=== PATIENT | male | born 1995 | race Caucasian/White ===

== ENCOUNTER 2017-01-10 12:01 | Emergency (ER) | payer OTHER ==
--- NOTE | 2017-01-10 12:21 | ERPHSYRPT ---
- History of Present Illness Time Seen by Provider: 01/10/17 12:16 Source: patient Exam Limitations: no limitations Physician History: 21-year-old white male arrives with complaint of painful erythematous gums symptoms for a week he states they bleed at times. Patient states he can get into a dentist for a week Past medical history is negative. Past surgical history negative Social history positive for tobacco use. Timing/Duration: week(s) (one week) Severity: moderate Modifying Factors: Improves With: nothing Associated Symptoms: No nausea, No vomiting, No abdominal pain, No shortness of breath, No heartburn, No diaphoresis, No cough, No chills, No chest pain, No fever, No headaches, No loss of appetite, No malaise, No rash, No syncope, No seizure, No weakness Allergies/Adverse Reactions: No Known Drug Allergies Allergy (Unverified 04/01/14 10:36) Home Medications: No Home Meds 1 ea UD 04/01/14 [History] Hx Tetanus, Diphtheria Vaccination/Date Given: No Hx Influenza Vaccination/Date Given: No Hx Pneumococcal Vaccination/Date Given: No - Review of Systems Constitutional: No Fever, No Chills Eyes: No Symptoms Ears, Nose, & Throat: Ear Pain, Other (painful erythematous gums for one week), No Ear Discharge, No Hearing Changes, No Tinnitus, No Nose Pain, No Nose Congestion, No Nose Discharge, No Sinus Drainage, No Epistaxis, No Mouth Pain, No Mouth Swelling, No Loose Teeth, No Throat Pain, No Throat Swelling, No Hoarse , No Painful Swallowing, No Snoring, No Stridor Respiratory: No Cough, No Dyspnea Cardiac: No Chest Pain, No Edema, No Syncope Abdominal/Gastrointestinal: No Abdominal Pain, No Nausea, No Vomiting, No Diarrhea Genitourinary Symptoms: No Dysuria Musculoskeletal: No Back Pain, No Neck Pain Skin: No Rash Neurological: No Dizziness, No Focal Weakness, No Sensory Changes Psychological: No Symptoms Endocrine: No Symptoms All Other Systems: Reviewed and Negative - Past Medical History Pertinent Past Medical History: No - Past Surgical History Past Surgical History: No - Social History Smoking Status: Current every day smoker How long have you smoked: yrs Exposure to second hand smoke: Yes Drug Use: none Patient Lives Alone: No - Nursing Vital Signs Nursing Vital Signs: Initial Vital Signs Temperature 98.9 F Temperature Source Oral Pulse Rate 78 Respiratory Rate 18 Blood Pressure [Right Arm] 147/87 Pain Intensity 7 - Physical Exam General Appearance: mild distress Eye Exam: PERRL/EOMI, eyes nml inspection Ears, Nose, Throat Exam: TMs normal, pharynx normal, moist mucous membranes, other (gingival mucosa erythematous) Neck Exam: normal inspection, non-tender, supple, full range of motion Respiratory Exam: normal breath sounds, lungs clear, No respiratory distress Cardiovascular Exam: regular rate/rhythm, normal heart sounds, normal peripheral pulses Gastrointestinal/Abdomen Exam: soft, normal bowel sounds, No tenderness, No mass Back Exam: normal inspection, normal range of motion, No CVA tenderness, No vertebral tenderness Extremity Exam: normal inspection, normal range of motion, pelvis stable Neurologic Exam: alert, oriented x 3, cooperative, normal mood/affect, nml cerebellar function, nml station & gait, sensation nml, No motor deficits Skin Exam: normal color, warm, dry, No rash SpO2 Interpretation: normal (100%) SpO2: 100 Oxygen Delivery: Room Air - Course Nursing assessment & vital signs reviewed: Yes - Progress Progress: improved Progress Note: 01/10/17 12:18 21-year-old white male arrives with complaint of painful erythematous gums for a week states he has talked to a dentist but can't get in for a week. Will go ahead and write for clindamycin, also Newberry Inspect is reviewed no narcotics are listed - Departure Time of Disposition: 12:19 Departure Disposition: Home Clinical Impression: Gingivitis Condition: Fair Critical Care Time: No Additional Instructions: Return home. Clindamycin 300 mg orally 3 times a day for 10 days. Newberry 5/325 #12 one orally every 4-6 hours as needed for pain. Follow-up with your dentist or your family doctor. Return for acute distress or for severe symptoms. Prescriptions: Clindamycin HCl 300 mg PO TID #30 capsule Hydrocodone/Acetaminophen [Newberry 5-325 Tablet] 1 tab PO Q4-6HPRN PRN #12 tablet PRN Reason: Pain
[2017-01-10 12:35] VITALS: BP 133/80; PULSE 74; O2SAT 98
== END 2017-01-10 12:39 | disposition home or self-care (01) ==
LOC: ED 12:01
DX: K05.10 Chronic gingivitis, plaque induced (principal)
CPT/HCPCS: 99281; 99283

== ENCOUNTER 2019-06-01 15:58 | Emergency (ER) | payer SELFPAY ==
--- NOTE | 2019-06-01 16:29 | ERPHSYRPT ---
- History of Present Illness Time Seen by Provider: 06/01/19 16:20 Source: patient Exam Limitations: no limitations Patient Subjective Stated Complaint: states began having right lateral lower rib pain last night and today coughed up some blood. denies fever, cough, or sob Triage Nursing Assessment: ambulated to room per self. skin w/d, color normal, resp easy. no coughing noted at this time. Physician History: Patient had new onset of right flank/CVA pain in the evening of 05/31/2019. Patient had an episode of coughing up blood this morning. Patient has not been evaluated prior to coming into the emergency department. Timing/Duration: yesterday, worse (over the past morning) Back Pain Location: paraspinous muscles (right flank/CVA area) Severity of Pain-Max: moderate Severity of Pain-Current: moderate Modifying Factors: Worsens With: immobilization, movement, rest Associated Symptoms: lower back pain, other (hemoptysis this morning), No fever , No chills, No sweating, No urinary incontinence, No loss of bowel control, No constipation, No nausea, No vomiting, No problems urinating, No light-headedness , No dizziness, No numbness in legs/feet, No weakness, No sensory/motor loss, No tingling in legs/feet, No muscle spasms Previous symptoms: no prior history, no recent treatment Allergies/Adverse Reactions: wool Allergy (Verified 06/01/19 16:24) Hx Tetanus, Diphtheria Vaccination/Date Given: No Hx Influenza Vaccination/Date Given: No Hx Pneumococcal Vaccination/Date Given: No - Review of Systems Constitutional: No Fever, No Chills Eyes: No Symptoms, No Eye Pain, No Vision Changes Ears, Nose, & Throat: No Nose Congestion, No Nose Discharge, No Epistaxis, No Mouth Pain, No Loose Teeth, No Throat Swelling, No Hoarse, No Painful Swallowing Respiratory: Other (hemoptysis), No Cough, No Dyspnea, No Dyspnea on Exertion ( SINGH) Cardiac: No Chest Pain, No Edema, No Syncope Abdominal/Gastrointestinal: No Abdominal Pain, No Nausea, No Vomiting, No Diarrhea, No Hematemesis, No Hematochezia, No Melena Genitourinary Symptoms: Flank Pain, No Dysuria, No Hematuria Musculoskeletal: Back Pain, No Neck Pain Skin: No Rash Neurological: No Dizziness, No Focal Weakness, No Sensory Changes Psychological: No Symptoms Endocrine: No Polyuria, No Polydipsia, No Excessive Sweating Hematologic/Lymphatic: No Easy Bleeding, No Easy Bruising All Other Systems: Reviewed and Negative - Past Medical History Pertinent Past Medical History: No - Past Surgical History Past Surgical History: No - Social History Smoking Status: Current every day smoker How long have you smoked: 7 Exposure to second hand smoke: No Drug Use: none Patient Lives Alone: No - Nursing Vital Signs Nursing Vital Signs: Initial Vital Signs Temperature 98.4 F 06/01/19 16:04 Pulse Rate 71 06/01/19 16:04 Respiratory Rate 18 06/01/19 16:04 Blood Pressure 132/89 06/01/19 16:04 O2 Sat by Pulse Oximetry 96 06/01/19 16:04 Pain Scale Pain Intensity [Right Back] 6 Pain Intensity 2 - Physical Exam General Appearance: no apparent distress, alert Eye Exam: PERRL/EOMI, eyes nml inspection Ears, Nose, Throat Exam: normal ENT inspection, pharynx normal, other (no blood in the nose, dried or active or any clots), No moist mucous membranes, No pharyngeal erythema, No tonsillar exudate Neck Exam: normal inspection, non-tender, supple, full range of motion, No meningismus, No midline tenderness Respiratory Exam: normal breath sounds, lungs clear, No respiratory distress Cardiovascular Exam: regular rate/rhythm, normal heart sounds, normal peripheral pulses, capillary refill <2 sec, No murmur, No friction rub Gastrointestinal Exam: soft, normal bowel sounds, No tenderness, No mass Back Exam: normal inspection, normal range of motion, No CVA tenderness, No vertebral tenderness, No rash Extremity Exam: normal inspection, normal range of motion, No calf tenderness, No pedal edema Neurologic Exam: alert, oriented x 3, cooperative, 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 Unremarkable pleural space with no pneumothorax or pleural effusion seen. Unremarkable heart with no cardiomegaly or pericardial effusion seen. Unremarkable aorta with no air in hasn't seen. Small cuff and another presentation 7. Unremarkable bone joints. No acute fractures. Unremarkable soft tissues. Overall impression: Acute findings. There has been a prior granulomatous disease.) Abdomen/Pelvis CT Interpretation: Tele-radiologist Report, Other (per the radiologist's interpretation: No acute intra-abdominal findings with liver, gallbladder and bile ducts, pancreas, spleen, adrenal, kidneys and ureter, stomach and bowel, appendix, and his peritoneal space, vascular, lymph nodes, bladder, bone/joint, reproductive, soft tissues all unremarkable. There is a small appendicolith seen. There is no appendiceal thickening or pair appendiceal fat stranding. Overall impression: No acute intra-abdominal findings.) Ordered Tests: Active Orders 24 hr Category Date Time Status ABDOMEN AND PELVIS W/0 CONTRAS [CT] Stat Exams 06/01/19 17:40 Taken CHEST WITHOUT CONTRAST [CT] Stat Exams 06/01/19 16:29 Taken CULTURE,URINE Stat Lab 06/01/19 17:02 Received UA W/RFX UR CULTURE Stat Lab 06/01/19 17:02 Completed Lab/Rad Data: Laboratory Results 06/01/19 Range/Units 17:02 Urine Color YELLOW (YELLOW) Urine Appearance TURBID (CLEAR) Urine pH 7.0 (5-6) Ur Specific Dyer 1.020 (1.005-1.025) Urine Protein NEGATIVE (Negative) Urine Ketones NEGATIVE (NEGATIVE) Urine Blood NEGATIVE (0-5) Shoaib/ul Urine Nitrite NEGATIVE (NEGATIVE) Urine Bilirubin NEGATIVE (NEGATIVE) Urine Urobilinogen NEGATIVE (0-1) mg/dL Ur Leukocyte Esterase NEGATIVE (NEGATIVE) Urine WBC (Auto) 26-50 (0-5) /HPF Urine RBC (Auto) 3-5 (0-2) /HPF U Epithel Cells (Auto) NONE (FEW) /HPF Urine Bacteria (Auto) RARE (NEGATIVE) /HPF Urine Mucus (Auto) SLIGHT (NEGATIVE) /HPF Urine Culture Reflexed YES (NO) Urine Glucose NEGATIVE (NEGATIVE) mg/dL - Progress Progress: improved Progress Note: 06/01/19 19:08 Patient is feeling much better with no back pain or episodes of dyspnea or hemoptysis since he has been in the emergency department. Counseled pt/family regarding: diagnosis, need for follow-up, rad results - Departure Departure Disposition: Home Clinical Impression: Hemoptysis, unspecified, Right flank pain, Elevated blood pressure reading without diagnosis of hypertension Condition: Good Critical Care Time: No Referrals: ANJU HAWKINS [Primary Care Provider] - 06/02/19 Instructions: Low Back Pain (DC), Coughing up Blood, DASH Diet Additional Instructions: No specific etiology was found for her symptoms today. Return immediately Bactrim return if any worsening cough, worsening shortness of breath, chest pain , returning coughing up blood, abdominal pain, worsening back pain, blood in her urine, or any other concerning signs or symptoms that were not present at today's emergency department visit for immediate reevaluation in the emergency department. Prescriptions: Etodolac 400 mg [Lodine 400 mg] 400 mg PO BID PRN PRN #20 tablet PRN Reason: Pain
[2019-06-01 17:16] LABS: Appearance TURBID (CLEAR); Bacteria RARE /HPF (NEGATIVE); Bilirubin NEGATIVE (NEGATIVE); Blood NEGATIVE Ery/ul (0-5); Glucose NEGATIVE (NEGATIVE); Ketones NEGATIVE (NEGATIVE); Leukocyte Esterase NEGATIVE (NEGATIVE); Mucus SLIGHT /HPF (NEGATIVE); Nitrite NEGATIVE (NEGATIVE); Protein,Urine Dip NEGATIVE (Negative); Urobilinogen NEGATIVE mg/dL (0-1); WBC 26-50 /HPF (0-5)
[2019-06-01 19:09] VITALS: BP 129/81; PULSE 62
[2019-06-01 19:13] VITALS: O2SAT 96
--- NOTE | 2019-06-02 08:39 | XRAY ---
Indication: Right flank pain. Multiple contiguous axial images obtained through the abdomen and pelvis without contrast as ordered. Comparison: None CT chest reported separately. Noncontrasted stomach and bowel loops appear nonobstructed. Normal appendix with tiny appendicolith. Minimal scattered colonic diverticulosis without diverticulitis. No free fluid/air. Spleen is enlarged measuring 14.8 cm in greatest axial dimension. Remaining liver, gallbladder, pancreas, spleen, adrenal glands, kidneys, ureters, bladder, and aorta appear unremarkable for noncontrast exam. Osseous structures intact. No ventral or inguinal hernias. Impression: 1. Colonic diverticulosis and splenomegaly. 2. Remaining CT abdomen/pelvis without contrast exam is negative. Comment: Preliminary interpretation was made by [facility]. No critical discrepancy. CT DI 23.27
--- NOTE | 2019-06-02 08:40 | XRAY ---
Indication: Hemoptysis. Multiple contiguous axial images obtained through the chest without contrast as ordered. Comparison: None CT chest reported separately. Lungs demonstrates small right lower lobe calcified granuloma and minimal bilateral dependent atelectasis. No suspicious pulmonary mass, infiltrate, or effusion. Heart is not enlarged. Aorta is normal in course and caliber. Subcarinal and bilateral hilar calcified nodes. No pathologic mediastinal lymphadenopathy. Bony thorax intact. CT abdomen reported separately. Impression: 1. Evidence for old granulomatous disease. 2. Remaining CT chest without contrast exam is negative. Comment: Preliminary interpretation was made by [facility]. No critical discrepancy. CT DI 17.76
== END 2019-06-01 19:31 | disposition home or self-care (01) ==
LOC: ED 15:58
DX: R04.2 Hemoptysis (principal); R10.9 Unspecified abdominal pain; R03.0 Elevated blood-pressure reading, without diagnosis of hypertension
CPT/HCPCS: 71250; 74176; 81001; 87086; 99284

== ENCOUNTER 2019-07-30 23:03 | Emergency (ER) | payer MEDICAID ==
--- NOTE | 2019-07-30 23:09 | ERPHSYRPT ---
- History of Present Illness Time Seen by Provider: 07/30/19 23:09 Source: patient Exam Limitations: no limitations Physician History: 23 y/o white male accidentally dropped a hammer onto his left great toe approx 7 hours waitstaff captain. pain not improving despite tylenol and ibuprofen Method of Injury: direct blow (from hammer) Occurred: this evening Quality: aching, throbbing Severity of Pain-Max: mild Severity of Pain-Current: mild Lower Extremities Pain: 1st toe: left (tenderness and swelling with nail injury- loose) Modifying Factors: Improves With: movement Allergies/Adverse Reactions: wool Allergy (Verified 07/30/19 23:29) Hx Tetanus, Diphtheria Vaccination/Date Given: No Hx Influenza Vaccination/Date Given: No Hx Pneumococcal Vaccination/Date Given: No - Review of Systems Constitutional: No Symptoms Eyes: No Symptoms Ears, Nose, & Throat: No Symptoms Respiratory: No Symptoms Cardiac: No Symptoms Abdominal/Gastrointestinal: No Symptoms Genitourinary Symptoms: No Symptoms Musculoskeletal: Injury (left great toe) Skin: No Symptoms Neurological: No Symptoms Psychological: No Symptoms Endocrine: No Symptoms Hematologic/Lymphatic: No Symptoms Immunological/Allergic: No Symptoms All Other Systems: Reviewed and Negative - Past Medical History Pertinent Past Medical History: No Neurological History: No Pertinent History ENT History: No Pertinent History Cardiac History: No Pertinent History Respiratory History: No Pertinent History Endocrine Medical History: No Pertinent History Musculoskeletal History: No Pertinent History GI Medical History: No Pertinent History History: No Pertinent History Psycho-Social History: No Pertinent History Male Reproductive Disorders: No Pertinent History - Past Surgical History Past Surgical History: No Neuro Surgical History: No Pertinent History Cardiac: No Pertinent History Respiratory: No Pertinent History Gastrointestinal: No Pertinent History Genitourinary: No Pertinent History Musculoskeletal: No Pertinent History Male Surgical History: No Pertinent History - Social History Smoking Status: Current every day smoker How long have you smoked: 7 Exposure to second hand smoke: No Drug Use: none Patient Lives Alone: No - Nursing Vital Signs Nursing Vital Signs: Initial Vital Signs Temperature 97.9 F 07/30/19 23:21 Pulse Rate 61 07/30/19 23:21 Respiratory Rate 18 07/30/19 23:21 Blood Pressure 154/88 07/30/19 23:21 O2 Sat by Pulse Oximetry 98 07/30/19 23:21 Pain Scale Pain Intensity 2 - Physical Exam General Appearance: no apparent distress, alert, anxiety Eyes, Ears, Nose, Throat Exam: normal ENT inspection, moist mucous membranes Neck Exam: normal inspection, non-tender, supple, full range of motion Cardiovascular/Respiratory Exam: chest non-tender Gastrointestinal/Abdominal Exam: non-tender Back Exam: normal inspection, normal range of motion, No CVA tenderness, No vertebral tenderness Hips Exam: bilateral: non-tender, normal inspection, normal range of motion, no evidence of injury Legs Exam: bilateral leg: non-tender, normal inspection, normal range of motion , no evidence of injury Knees Exam: bilateral knee: non-tender, normal inspection, normal range of motion, no evidence of injury Ankle Exam: bilateral ankle: non-tender, normal inspection, normal range of motion, no evidence of injury Foot Exam: left foot: bone tenderness, nail injury (1st toe nail is loose), pain , soft tissue tenderness (1st toe) Neuro/Tendon Exam: normal sensation, normal motor functions, normal tendon functions, responds to pain, no evidence tendon injury Mental Status Exam: alert, oriented x 3, cooperative Skin Exam: normal color, warm, dry SpO2 Interpretation: normal O2 Delivery: Room Air - Course Nursing assessment & vital signs reviewed: Yes Ordered Tests: Active Orders 24 hr Category Date Time Status FOOT (MINIMUM 3 VIEWS) Stat Exams 07/31/19 00:07 Ordered Medication Summary Discontinued Medications Generic Name Dose Route Start Last Admin Trade Name Gilbert PRN Reason Stop Dose Admin Oxycodone/Acetaminophen 1 tab 07/31/19 00:31 07/31/19 00:35 Percocet Tablet 5/325mg PO 07/31/19 00:32 1 tab STAT STA Administration Oxycodone/Acetaminophen Confirm 07/31/19 00:34 Percocet Tablet 5/325mg Administered 07/31/19 00:35 Dose 1 tab .ROUTE .STK-MED ONE - Progress Progress: unchanged Progress Note: 07/31/19 00:41 xray left foot-no acute bony fx or dislocation Counseled pt/family regarding: diagnosis, need for follow-up, rad results - Departure Departure Disposition: Home Clinical Impression: Toe contusion, Toenail deformity Condition: Stable Critical Care Time: No Referrals: ANJU HAWKINS [Primary Care Provider] - Additional Instructions: alternate soaking left foot in warm epsom salts or soapy water with ice pack to area. wear a bandaid to cover left great toenail. follow up with primary doctor as needed. tylenol and ibuprofen for pain
[2019-07-31] MEDS ORDERED: PERCOCET TABLET 5/325MG PO STA (00:31)
[2019-07-31] MEDS ORDERED: PERCOCET TABLET 5/325MG ONE (00:34)
[2019-07-31 01:01] VITALS: BP 133/69; PULSE 62; O2SAT 96
--- NOTE | 2019-07-31 09:05 | XRAY ---
Indication: Great toe pain following injury. Comparison: None 3 nonweightbearing views of the left foot demonstrates tiny posterior heel spur. No other bony, articular, or soft tissue abnormalities.
== END 2019-07-31 01:08 | disposition home or self-care (01) ==
LOC: ED 23:03
DX: S90.212A Contusion of left great toe with damage to nail, initial encounter (principal); L60.8 Other nail disorders; W22.8XXA Striking against or struck by other objects, initial encounter; Y93.9 Activity, unspecified; Y92.9 Unspecified place or not applicable
CPT/HCPCS: 73630; 99283; A9270-GY

== ENCOUNTER 2020-06-13 17:28 | Emergency (ER) | payer SELFPAY ==
--- NOTE | 2020-06-13 17:51 | ERPHSYRPT ---
- History of Present Illness Time Seen by Provider: 06/13/20 17:48 Source: patient Exam Limitations: no limitations Patient Subjective Stated Complaint: congestion/cough Triage Nursing Assessment: pt to ED c/o cough and nasal congestion x 3 days. s tates his ears feel full. denies COVID exposure. afebrile on arrival to ED and denies fever at home. no SOB. lung sounds clear and equal bilaterally and heart sounds clear. no other COVID sx reported. Physician History: pt to ED c/o cough and nasal congestion x 3 days. states his ears feel full. denies COVID exposure. afebrile on arrival to ED and denies fever at home. no other COVID sx reported. Timing/Duration: days (3 days) Associated Symptoms: cough, nasal congestion/drainage Allergies/Adverse Reactions: wool Allergy (Verified 06/13/20 17:47) Hx Tetanus, Diphtheria Vaccination/Date Given: No Hx Influenza Vaccination/Date Given: No Hx Pneumococcal Vaccination/Date Given: No Travel Risk - International Travel Have you traveled outside of the country in past 3 weeks: No - Coronavirus Screening Are you exhibiting any of the following symptoms?: Yes Symptoms: Cough: New Onset Close contact with a COVID-19 positive Pt in past 14-21 Days: No - Review of Systems Constitutional: No Symptoms Eyes: No Symptoms Ears, Nose, & Throat: Nose Congestion Respiratory: Cough Cardiac: No Symptoms Abdominal/Gastrointestinal: No Symptoms Genitourinary Symptoms: No Symptoms Musculoskeletal: No Symptoms Skin: No Symptoms - Past Medical History Pertinent Past Medical History: No Neurological History: No Pertinent History ENT History: No Pertinent History Cardiac History: No Pertinent History Respiratory History: No Pertinent History Endocrine Medical History: No Pertinent History Musculoskeletal History: No Pertinent History GI Medical History: No Pertinent History History: No Pertinent History Psycho-Social History: No Pertinent History Male Reproductive Disorders: No Pertinent History - Past Surgical History Past Surgical History: No Neuro Surgical History: No Pertinent History Cardiac: No Pertinent History Respiratory: No Pertinent History Gastrointestinal: No Pertinent History Genitourinary: No Pertinent History Musculoskeletal: No Pertinent History Male Surgical History: No Pertinent History - Social History Smoking Status: Current every day smoker How long have you smoked: 7 Exposure to second hand smoke: Yes Drug Use: none Patient Lives Alone: No - Nursing Vital Signs Nursing Vital Signs: Initial Vital Signs Temperature 98.3 F 06/13/20 17:34 Pulse Rate 75 06/13/20 17:34 Respiratory Rate 18 06/13/20 17:34 Blood Pressure 160/106 06/13/20 17:34 O2 Sat by Pulse Oximetry 97 06/13/20 17:34 Pain Scale Pain Intensity 0 - Physical Exam General Appearance: no apparent distress Eye Exam: bilateral eye: PERRL, EOMI, other (injected conjunctiva) Ear Exam: bilateral ear: auricle normal, canal normal, TM normal Nasal Exam: normal inspection Throat Exam: normal, pharynx normal Neck Exam: normal inspection Cardiovascular/Respiratory Exam: chest non-tender, normal breath sounds Abdominal Exam: non-tender Neurologic Exam: alert, oriented x 3 Skin Exam: normal color SpO2 Interpretation: normal SpO2: 97 O2 Delivery: Room Air - Course Nursing assessment & vital signs reviewed: Yes - Radiology Exams Chest X-ray Interpretation: Reviewed by me, Negative, No Pneumonia Ordered Tests: Active Orders 24 hr Category Date Time Status CHEST 2 VIEWS (PA AND LAT) Stat Exams 06/13/20 17:46 Taken CBC W DIFF Stat Lab 06/13/20 16:00 Completed Lab/Rad Data: Laboratory Result Diagrams 06/13/20 16:00 Laboratory Results 06/13/20 Range/Units 16:00 WBC 8.7 (4.0-10.5) K/mm3 RBC 5.23 (4.1-5.6) M/mm3 Hgb 15.6 (12.5-18.0) gm/dl Hct 44.8 (42-50) % MCV 85.7 (78-100) fl MCH 29.8 (26-32) pg MCHC 34.8 (32-36) g/dl RDW 13.1 (11.5-14.0) % Plt Count 182 (150-450) K/mm3 MPV 9.8 (7.5-11.0) fl Gran % 63.6 (36.0-66.0) % Eos # (Auto) 0.29 (0-0.5) Absolute Lymphs (auto) 1.89 (1.0-4.6) Absolute Monos (auto) 0.94 (0.0-1.3) Lymphocytes % 21.8 L (24.0-44.0) % Monocytes % 10.8 (0.0-12.0) % Eosinophils % 3.3 (0.00-5.0) % Basophils % 0.5 (0.0-0.4) % Absolute Granulocytes 5.51 (1.4-6.9) Basophils # 0.04 (0-0.4) - Progress Progress: unchanged Progress Note: 06/13/20 18:17 That he is showing some signs of coronavirus disease 2019 so we have performed coronavirus nasal swab test for him. Results should be available in the next 48 to 72 hours children he should practice all the coronavirus preventive measures. Counseled pt/family regarding: lab results, diagnosis, need for follow-up, rad results - Departure Departure Disposition: Home Clinical Impression: Bronchitis Sinusitis Qualifiers: Sinusitis location: maxillary Chronicity: acute Recurrence: non-recurrent Qualified Code(s): J01.00 - Acute maxillary sinusitis, unspecified Condition: Stable Critical Care Time: No Referrals: ANJU HAWKINS [Primary Care Provider] - Instructions: Cough, Runny Nose, and the Common Cold (DC), Sinusitis, Adult (DC), Coronavirus Disease 2019 (COVID-19) (DC) Additional Instructions: Discharge/Care Plan NIXON SIMS was seen on 06/13/20 in the Emergency Room. The patient was counseled regarding Diagnosis,Lab results, Imaging studies, need for follow up and when to return to the Emergency Room. Prescriptions given: Discharge Note I have spoken with the patient and/or caregivers. I have explained the patient's condition, diagnosis and treatment plan based on the information available to me at this time. I have answered the patient's and/or caregiver's questions and addressed any concerns. The patient and/or caregivers have as good understanding of the patient's diagnosis, condition and treatment plan as can be expected at this point. The vital signs have been stable. The patient's condition is stable and appropriate for discharge from the emergency department. The patient will pursue further outpatient evaluation with the primary care physician or other designated or consulting physician as outlined in the discharge instructions. The patient and/or caregivers are agreeable to this plan of care and follow-up instructions have been explained in detail. The patient and/or caregivers have received these instruction. The patient/and or caregivers are aware that any significant change in condition or worsening of symptoms should prompt an immediate return to this or the closest emergency department or call 911. NIXON SIMS was seen on 06/13/20 n the Emergency Room. At that time you were treated for an emergent condition, during your visit Laboratory, Radiology and/or other procedures may have been ordered. It is very important that you follow-up with your Primary Care Physician ANJU HAWKINS within the next 24-48 hours to review your Emergency Room visit and the final results of testing that was ordered. Some test results such as Urine Cultures, Blood Cul tures, and other cultures if ordered will not be finalized for 24-48 hours. If you do not have a Primary Care Provider please call the medical records department at [phone] to obtain a copy of your results or you may sign into our patient portal to obtain these results by visiting us @ [email or web address] and completing the following steps: 1. Click on the Patient Portal link 2. Click the Patient Self Enrollment Link to complete the enrollment form and entering your 3. Once the enrollment form is completed you will receive an email with a te [employer] ID and password at the email address you provided. 4. Next choose a user name and password. Your user name must be at least 4 characters long and your password must be at least 4 characters long. 5. Choose a security question from the list and provide your answer to the question. If you already have signed into the Health Portal you may access your Health Care Information 09/04 by the following steps: 1. Login to our website @ [email or web address] 2. Enter your original user name and password. FAQS [facility] Portal is an online tool that contains your Lab Results, Radiology Reports, Visit History, Discharge Instructions and Health Summary Lab and Radiology Results will not be available for 72 hours on the portal. The Portal is a secure site, passwords are encryted and URLs are re-written so they cannot be copied and pasted. You and authorized family members are the only ones who can access your Portal. Also there is a timeout feature that protects your information if you leave the Portal page open. If you have technical difficulty please use the Contact Us link on the page this will allow you to submit any questions you have regarding the Portal or you may contact the Medical Record Department at [phone]. Forms: Work/School Release Form Prescriptions: Methylprednisolone Packet [Medrol Dosepack] 4 mg PO UD #30 packet Guaifenesin/Dextromethorphan [Mucinex Dm ER 600-30 mg Tablet] 1 each PO BID #20 tab.er.[id number]
[2020-06-13 18:15] LABS: Absolute Neutrophil Ct (ANC) 5.51 (1.4-6.9); BASOPHIL % 0.5 % (0.0-0.4); Basophil (Absolute #) 0.04 (0-0.4); Eosinophil % 3.3 % (0.00-5.0); Eosinophil (Absolute #) 0.29 (0-0.5); Hematocrit 44.8 % (42-50); Hemoglobin 15.6 gm/dl (12.5-18.0); Lymphocyte (Absolute #) 1.89 (1.0-4.6); Lymphocytes % 21.8 % (24.0-44.0); Mean Cell Volume 85.7 fl (78-100); Mean Corpuscular Hemoglobin 29.8 pg (26-32); Mean Corpuscular Hgb Concent. 34.8 g/dl (32-36); Mean Platelet Volume 9.8 fl (7.5-11.0); Monocyte (Absolute #) 0.94 (0.0-1.3); Monocytes % 10.8 % (0.0-12.0); Neutrophil % 63.6 % (36.0-66.0); Platelet Count 182 K/mm3 (150-450); Red Blood Count 5.23 M/mm3 (4.1-5.6); Red Cell Distribution Width 13.1 % (11.5-14.0); White Blood Count 8.7 K/mm3 (4.0-10.5)
[2020-06-13 18:41] LABS: INFLUENZA A NEGATIVE (NEGATIVE); INFLUENZA B NEGATIVE (NEGATIVE); RESPIRATORY SYNCTIAL VIRUS NEGATIVE (Negative)
[2020-06-13 19:03] VITALS: BP 123/75; PULSE 93; O2SAT 98
--- NOTE | 2020-06-14 08:44 | XRAY ---
Indication: Cough. Comparison: November 18, 2007. PA/lateral chest remains hyperinflated and clear. Heart is not enlarged. Bony thorax intact. No new/acute findings.
== END 2020-06-13 18:58 | disposition home or self-care (01) ==
LOC: ED 17:28
DX: J40 Bronchitis, not specified as acute or chronic (principal); J01.00 Acute maxillary sinusitis, unspecified
CPT/HCPCS: 36415; 71046; 85025; 87631; 99284; U0003

== ENCOUNTER 2021-09-19 17:36 | Emergency (ER) | payer MEDICAID ==
[2021-09-19] MEDS ORDERED: TORAdol 30 mg Injection IM ONE (18:24)
[2021-09-19 18:26] VITALS: BP 131/79; PULSE 68; O2SAT 94
[2021-09-19] MEDS ORDERED: TORAdol 30 mg Injection ONE (18:28)
[2021-09-19] MEDS ORDERED: Adacel Vial IM ONE ×2 (18:34→18:36)
--- NOTE | 2021-09-19 18:41 | ERPHSYRPT ---
- History of Present Illness Time Seen by Provider: 09/19/21 18:24 Source: patient Exam Limitations: no limitations Patient Subjective Stated Complaint: Pt punched a wall with his right hand injuring it Triage Nursing Assessment: Pt was brought to the ER by a friend, vitals wnl, rates pain 2/10, right hand swollen, able to move all fingers, pulses normal and cap refill normal, denies any other injuries Physician History: 25-year-old right-handed dominant male presented in the ER after punching the wall with right hand and is swelling on the dorsum of hand with associated mild to moderate pain especially with movements of fingers in the hand. No numbness tingling of the fingers. No injury anywhere else. Superficial abrasion on the fifth knuckle. Occurred: just prior to arrival Method of Injury: direct blow Quality: aching Severity of Pain-Max: moderate Severity of Pain-Current: mild Extremities Pain Location: hand: right Modifying Factors: Improves With: immobilization. Worsens With: movement Associated Symptoms: none Allergies/Adverse Reactions: wool Allergy (Verified 09/19/21 18:26) Hx Tetanus, Diphtheria Vaccination/Date Given: No Hx Influenza Vaccination/Date Given: No Hx Pneumococcal Vaccination/Date Given: No Travel Risk - International Travel Have you traveled outside of the country in past 3 weeks: No - Coronavirus Screening Are you exhibiting any of the following symptoms?: No Close contact with a COVID-19 positive Pt in past 14-21 Days: No - Vaccine Status Have you recieved a Covid-19 vaccination: No - Review of Systems Constitutional: No Symptoms Eyes: No Symptoms Ears, Nose, & Throat: No Symptoms Respiratory: No Symptoms Cardiac: No Symptoms Abdominal/Gastrointestinal: No Symptoms Musculoskeletal: Injury Skin: Skin Lesions Neurological: No Symptoms Psychological: No Symptoms Endocrine: No Symptoms Hematologic/Lymphatic: No Symptoms - Past Medical History Pertinent Past Medical History: No Neurological History: No Pertinent History ENT History: No Pertinent History Cardiac History: No Pertinent History Respiratory History: No Pertinent History Endocrine Medical History: No Pertinent History Musculoskeletal History: No Pertinent History GI Medical History: No Pertinent History History: No Pertinent History Psycho-Social History: No Pertinent History Male Reproductive Disorders: No Pertinent History - Past Surgical History Past Surgical History: No Neuro Surgical History: No Pertinent History Cardiac: No Pertinent History Respiratory: No Pertinent History Gastrointestinal: No Pertinent History Genitourinary: No Pertinent History Musculoskeletal: No Pertinent History Male Surgical History: No Pertinent History - Social History Smoking Status: Current every day smoker How long have you smoked: 7 Exposure to second hand smoke: Yes Drug Use: none Patient Lives Alone: No - Nursing Vital Signs Nursing Vital Signs: Initial Vital Signs Temperature 98.2 F 09/19/21 18:16 Pulse Rate 68 09/19/21 18:16 Blood Pressure 131/79 09/19/21 18:16 O2 Sat by Pulse Oximetry 94 L 09/19/21 18:16 Pain Scale Pain Intensity 2 - Physical Exam General Appearance: no apparent distress, alert Eyes, Ears, Nose, Throat Exam: normal ENT inspection Neck Exam: normal inspection, full range of motion Cardiovascular/Respiratory Exam: normal breath sounds, regular rate/rhythm Wrist Exam: normal inspection, non-tender, no evidence of injury Hand Exam: bone tenderness (Dorsum of right hand ), limited ROM (Third finger right hand), soft tissue tenderness, stiffness, swelling Neuro/Tendon Exam: normal sensation, normal motor functions Mental Status Exam: alert, oriented x 3, cooperative Skin Exam: normal color SpO2 Interpretation: normal SpO2: 94 O2 Delivery: Room Air (Fingers) Ordered Tests: Medication Summary Discontinued Medications Generic Name Dose Route Start Last Admin Trade Name Freq PRN Reason Stop Dose Admin Diphtheria/Tetanus/Acell Pertussis 0.5 ml 09/19/21 18:34 09/19/21 18:37 Tdap --Diph,Pertuss(Acell),Tet Vac/Pf 0.5 Ml Vial IM 09/19/21 18:35 0.5 ml .ONCE ONE Administration Diphtheria/Tetanus/Acell Pertussis Confirm 09/19/21 18:36 Tdap --Diph,Pertuss(Acell),Tet Vac/Pf 0.5 Ml Vial Administered 09/19/21 18:37 Dose 0.5 ml IM .STK-MED ONE Ketorolac Tromethamine 30 mg 09/19/21 18:24 09/19/21 18:29 Ketorolac Tromethamine 30 Mg/Ml Inj IM 09/19/21 18:25 30 mg STAT ONE Administration Ketorolac Tromethamine Confirm 09/19/21 18:28 Ketorolac Tromethamine 30 Mg/Ml Inj Administered 09/19/21 18:29 Dose 30 mg .ROUTE .STK-MED ONE - Progress Progress: improved Progress Note: 09/19/21 18:41 Toradol for symptomatic relief. Tetanus is updated. Has fractured third metacarpal with some angulation. Placed in a splint by RN. Recommended outpatient Ortho/hand surgery follow-up. 09/19/21 18:41 Counseled pt/family regarding: diagnosis, need for follow-up, rad results - Departure Departure Disposition: Home Clinical Impression: Fracture, metacarpal shaft Qualifiers: Encounter type: initial encounter Metacarpal bone: third Fracture type: closed Fracture alignment: displaced Laterality: right Qualified Code(s): S62.322A - Displaced fracture of shaft of third metacarpal bone, right hand, initial encounter for closed fracture Condition: Stable Critical Care Time: No Referrals: ANJU HAWKINS [Primary Care Provider] - Follow up/PCP as directed DOROTEO MCKOY MD [NON-STAFF PHY W/O PRIVILEGES] - Follow up/PCP as directed (Call tomorrow for appointment for reevaluation) Instructions: Hand Fracture (DC) Additional Instructions: Take Tylenol/ibuprofen as needed. Keep it elevated. Intermittent ice. Follow- up with hand surgery for reevaluation. Return to ER for worsening pain, difficulty movements of fingers Prescriptions: Ibuprofen 600 mg PO Q6HPRN PRN 10 Days #20 tablet PRN Reason: Pain
--- NOTE | 2021-09-20 08:44 | XRAY ---
Indication: Pain following punching injury. Comparison: None 3 view right hand demonstrates nondisplaced 3rd metacarpal shaft fracture with posterior soft tissue swelling. No other bony, articular, or soft tissue abnormalities.
== END 2021-09-19 18:57 | disposition home or self-care (01) ==
LOC: ED 17:36
DX: S62.322A Displaced fracture of shaft of third metacarpal bone, right hand, initial encounter for closed fracture (principal); W22.01XA Walked into wall, initial encounter; Z72.0 Tobacco use
CPT/HCPCS: 29125; 73130; 90471; 90715; 96372; 99284; J1885

== ENCOUNTER 2024-09-25 20:22 | Emergency (ER) | payer MEDICAID ==
[2024-09-25 20:46] VITALS: RESP 18; TEMP 97.5
[2024-09-25] MEDS ORDERED: TORAdol 30 mg Injection ONE (20:47)
[2024-09-25] MEDS: TORAdol 30 mg Injection IM ONE (20:47)
[2024-09-25 21:10] LABS: Absolute Neutrophil Ct (ANC) 7.63 x10^3/uL (1.78-5.38); BASOPHIL % 0.5 % (0.2-1.2); Basophil (Absolute #) 0.06 x10^3/uL (0.01-0.08); Eosinophil % 1.5 % (0.8-7.0); Eosinophil (Absolute #) 0.18 x10^3/uL (0.04-0.54); Hematocrit 44.5 % (40.1-51.0); Hemoglobin 15.5 g/dL (13.7-17.5); IMMATURE GRAN # 0.02 x10^3u/L (0.001-0.031); IMMATURE GRAN % 0.2 % (0.001-0.429); Lymphocyte (Absolute #) 3.34 x10^3/uL (1.32-3.57); Lymphocytes % 27.6 % (21.8-53.1); Mean Cell Volume 81.5 fL (79.0-92.2); Mean Corpuscular Hemoglobin 28.4 pg (25.7-32.2); Mean Corpuscular Hgb Concent. 34.8 g/dL (32.3-36.5); Mean Platelet Volume 9.6 fL (9.4-12.4); Monocyte (Absolute #) 0.86 x10^3/uL (0.30-0.82); Monocytes % 7.1 % (5.3-12.2); Neutrophil % 63.1 % (34.0-67.9); Platelet Count 261 x10^3/uL (163-337); Red Blood Count 5.46 x10^6/uL (4.63-6.08); Red Cell Distribution Width 12.2 % (11.6-14.4); White Blood Count 12.1 x10^3/uL (4.23-9.07)
[2024-09-25 21:32] LABS: ALBUMIN 4.6 g/dL (3.5-5.0); ANION GAP 13.3 MEQ/L (5-15); BILIRUBIN,TOTAL 0.6 mg/dL (0.2-1.3); Calcium 9.5 mg/dL (8.4-10.2); Creatinine 1 1.05 mg/dL (0.66-1.25); EST GLOMERULAR FILTRATION RATE 97.9 ML/MIN; Potassium 3.5 mmol/L (3.5-5.1); Total Protein 7.8 g/dL (6.3-8.2)
[2024-09-25 22:02] VITALS: O2SAT 96
[2024-09-25] MEDS ORDERED: BACTRIM DS TABLET PO ONE (22:33)
[2024-09-25] MEDS: BACTRIM DS TABLET PO ONE (22:34)
--- NOTE | 2024-09-25 22:36 | ERPHSYRPT ---
- History of Present Illness Time Seen by Provider: 09/25/24 20:35 Source: patient Exam Limitations: no limitations Patient Subjective Stated Complaint: pt states that he thinks his toe nail is growing into his toe Triage Nursing Assessment: pt ambulated into the er; pt is axo x4; c/o toe pain; pt states 8/10 to 2nd toe on left foot; 2 toe is red and swollen; toe nails are long, think, yellow; skin PDW; no respiratory distress present; hypertensive Physician History: 28 years old male with no history of diabetes mellitus presented in the ER with pain and swelling left second toe for the last 4 to 5 days with progressive worsening. Patient has long toenails and reports have not been trimming them because of the pain. No fever or chills reported. Denies any known trauma. Reports dull aching mild to moderate pain which is aggravated with walking. Allergies/Adverse Reactions: wool Allergy (Verified 09/25/24 20:37) Hx Tetanus, Diphtheria Vaccination/Date Given: No Hx Influenza Vaccination/Date Given: No Hx Pneumococcal Vaccination/Date Given: No Travel Risk - International Travel Have you traveled outside of the country in past 3 weeks: No - Emerging Infectious Disease Are you exhibiting symptoms associated with any current EIDs: No - Review of Systems Constitutional: No Symptoms Ears, Nose, & Throat: No Symptoms Respiratory: No Symptoms Cardiac: No Symptoms Skin: Rash Neurological: No Symptoms - Past Medical History Pertinent Past Medical History: No Neurological History: No Pertinent History ENT History: No Pertinent History Cardiac History: No Pertinent History Respiratory History: No Pertinent History Endocrine Medical History: No Pertinent History Musculoskeletal History: No Pertinent History GI Medical History: No Pertinent History History: No Pertinent History Psycho-Social History: No Pertinent History Male Reproductive Disorders: No Pertinent History - Past Surgical History Past Surgical History: No Neuro Surgical History: No Pertinent History Cardiac: No Pertinent History Respiratory: No Pertinent History Gastrointestinal: No Pertinent History Genitourinary: No Pertinent History Musculoskeletal: No Pertinent History Male Surgical History: No Pertinent History - Social History Smoking Status: Light tobacco smoker How long have you smoked: 7 Exposure to second hand smoke: Yes Drug Use: marijuana Patient Lives Alone: No - Social Determinants of Health Will the patient participate in the screening: Yes Do you worry about a steady place to live?: No Do you have any problems with any of the following?: No known problems In the past 12 months,have you had to go without utilities?: No Transportation Issues: No Has anyone in your support network made you feel unsafe?: No Have you or anyone in your house had to go without enough: No - Nursing Vital Signs Nursing Vital Signs: Initial Vital Signs Pulse Rate 83 09/25/24 20:37 Blood Pressure 169/89 09/25/24 20:37 O2 Sat by Pulse Oximetry 97 09/25/24 20:37 Pain Scale Pain Intensity 8 - Physical Exam General Appearance: no apparent distress Neck Exam: normal inspection Cardiovascular/Respiratory Exam: normal breath sounds, regular rate/rhythm Foot Exam: right foot: non-tender, normal inspection, normal range of motion, no evidence of injury, left foot: soft tissue tenderness, swelling (Second toe) Neuro/Tendon Exam: normal sensation, normal motor functions Mental Status Exam: alert, oriented x 3, cooperative Skin Exam: normal color, rash SpO2 Interpretation: normal SpO2: 96 O2 Delivery: Room Air Ordered Tests: Active Orders 24 hr Category Date Time Status FOOT (MINIMUM 3 VIEWS) Stat Exams 09/25/24 20:55 Taken BLOOD CULTURE Stat Lab 09/25/24 21:00 Received CBC W DIFF Stat Lab 09/25/24 20:55 Completed CMP Stat Lab 09/25/24 20:55 Completed Lactic Acid Stat Lab 09/25/24 21:03 Completed Medication Summary Discontinued Medications Generic Name Dose Route Start Last Admin Trade Name Gilbert PRN Reason Stop Dose Admin Ketorolac Tromethamine 30 mg 09/25/24 20:42 09/25/24 20:47 Ketorolac Tromethamine 30 Mg/Ml Inj IM 09/25/24 20:43 30 mg STAT ONE Administration Ketorolac Tromethamine Confirm 09/25/24 20:47 Ketorolac Tromethamine 30 Mg/Ml Inj Administered 09/25/24 20:48 Dose 30 mg .ROUTE .STK-MED ONE Trimethoprim/Sulfamethoxazole 1 tab 09/25/24 22:10 Smz/Tmp Ds Tablet 1 Tablet PO 09/25/24 22:11 STAT ONE Lab/Rad Data: Laboratory Result Diagrams 09/25/24 20:55 09/25/24 20:55 Laboratory Results 09/25/24 09/25/24 09/25/24 Range/Units 21:03 20:55 20:55 WBC 12.1 H (4.23-9.07) x10^3/uL RBC 5.46 (4.63-6.08) x10^6/uL Hgb 15.5 (13.7-17.5) g/dL Hct 44.5 (40.1-51.0) % MCV 81.5 (79.0-92.2) fL MCH 28.4 (25.7-32.2) pg MCHC 34.8 (32.3-36.5) g/dL RDW 12.2 (11.6-14.4) % Plt Count 261 (163-337) x10^3/uL MPV 9.6 (9.4-12.4) fL Gran % 63.1 (34.0-67.9) % Immature Gran % (Auto) 0.2 (0.001-0.429) % Nucleat RBC Rel Count 0.0 (0.00-0.2) % Eos # (Auto) 0.18 (0.04-0.54) x10^3/uL Immature Gran # (Auto) 0.02 (0.001-0.031) x10^3u/L Absolute Lymphs (auto) 3.34 (1.32-3.57) x10^3/uL Absolute Monos (auto) 0.86 H (0.30-0.82) x10^3/uL Absolute Nucleated RBC 0.00 (0.00-0.012) x10^3u/L Lymphocytes % 27.6 (21.8-53.1) % Monocytes % 7.1 (5.3-12.2) % Eosinophils % 1.5 (0.8-7.0) % Basophils % 0.5 (0.2-1.2) % Absolute Granulocytes 7.63 H (1.78-5.38) x10^3/uL Basophils # 0.06 (0.01-0.08) x10^3/uL Sodium 138 (135-145) mmol/L Potassium 3.5 (3.5-5.1) mmol/L Chloride 106 (98-107) mmol/L Carbon Dioxide 22 (22-30) mmol/L Anion Gap 13.3 (5-15) MEQ/L BUN 21 H (9-20) mg/dL Creatinine 1.05 (0.66-1.25) mg/dL Estimated GFR 97.9 ML/MIN Glucose 119 H (74-106) mg/dL Lactic Acid 1.5 (0.4-2.0) Calcium 9.5 (8.4-10.2) mg/dL Total Bilirubin 0.60 (0.2-1.3) mg/dL AST 32 (17-59) U/L ALT 28 (0-50) U/L Alkaline Phosphatase 72 (38-126) U/L Serum Total Protein 7.8 (6.3-8.2) g/dL Albumin 4.6 (3.5-5.0) g/dL - Progress Progress: improved Progress Note: 09/25/24 22:26 28 years old is evaluated in the ER first left second toe swelling and redness with pain. Does have long nails and have not trimmed them in a while because of the pain associated with it. Patient denies any fever or chills. No obvious trauma. I have obtained x-rays which are negative for fracture dislocation reviewed by me, official report is pending. Has a white count of 12, chemistries fairly unremarkable with a glucose of 116. I have started on Bactrim and given Toradol for symptomatic relief. Recommended taking Tylenol ibuprofen and outpatient follow-up. Discussed signs symptoms of worsening needing return to ER which he seems understanding. Counseled pt/family regarding: lab results, diagnosis, need for follow-up, rad results Medical Desision Making - Diagnostic Testing Diagnostic test were ordered, analyzed, and reviewed by me: Yes Radiological Interpretation: Interpreted by me, Reviewed by me - Risk of complications The pt has a mod risk of morbidity or mortality based on: Need for prescription drug management - Departure Departure Disposition: Home Clinical Impression: Toe infection Condition: Stable Critical Care Time: No Referrals: ANJU HAWKINS [Primary Care Provider] - Follow up with PCP 1 day MARY SANTORO DPM [ACTIVE STAFF] - Follow up/PCP as directed (Call for appointment for reevaluation 1 to 2 days) Instructions: Contusion (DC) Additional Instructions: Use soft shoes, Tylenol/ibuprofen as needed. Follow-up with primary care/podia try for reevaluation. Return to ER for any worsening. Prescriptions: Ibuprofen 600 mg PO Q6HPRN PRN 10 Days #20 tablet PRN Reason: Pain Smz/Tmp Ds Tablet [Bactrim Ds Tablet] 1 udtab PO BID #14 tablet
[2024-09-25 22:41] VITALS: BP 128/81; PULSE 68
--- NOTE | 2024-09-26 08:51 | XRAY ---
Indication: Second toe erythema and swelling. Comparison: July 31, 2019 3 nonweightbearing views left foot demonstrates new mild 2nd toe soft tissue swelling with presumed overgrowth toenail. No other bony, articular, or soft tissue abnormalities.
== END 2024-09-25 22:43 | disposition home or self-care (01) ==
LOC: ED 20:22
DX: L08.9 Local infection of the skin and subcutaneous tissue, unspecified (principal); M79.675 Pain in left toe(s); Z72.0 Tobacco use
CPT/HCPCS: 36415; 73630; 80053; 83605; 85025; 87040; 96372; 99283; 99284; J1885; A9270-GY